=== PATIENT | female | born 1965 | race Caucasian/White ===

== ENCOUNTER 2018-01-11 19:47 | Emergency (ER) | payer MEDICAID, SELFPAY ==
[2018-01-11 19:49] VITALS: BP 158/105; PULSE 117; RESP 20; TEMP 36.6; O2SAT 100; BMI 47.0
[2018-01-11] MEDS: Ondansetron ODT 4 MG Tablet PO (20:20)
[2018-01-11] MEDS: HYDROmorphone 1 MG/ML Syringe IM (20:20)
--- NOTE | 2018-01-11 20:42 | ED.VISSUMM ---
- ER Visit Summary Date of Service: 01/11/18 Chief Complaint: Right arm pain History of Present Illness: The patient is a [address] Lazo. 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 She has pain in her right arm that began 2 weeks ago. Sick cramping pains 10 and 10 severity. Is worsened by movement. She taken naproxen, tizanidine, and Tylenol without relief. She denies any paresthesias or weakness. She reports that she had a similar episode 2 years ago with a flare of her Durcum's. Patient reports the pain has made her nauseated. She denies any fever, chills, chest pain, shortness of breath, abdominal pain, vomiting, or other complaints. Physical Examination: Vitals: Stable. Afebrile. General: Well-nourished and well-developed. Head: Normocephalic atraumatic. Neck: Supple, no lymphadenopathy. No JVD. Nontender. Cardiovascular: Regular rate and rhythm. No murmurs. Respiratory: No respiratory distress. Clear to auscultation bilaterally. Abdominal: Soft, nontender, nondistended, normal bowel sounds. No guarding, rebound, or peritoneal signs. Back: Nontender. Extremities: Severe tenderness palpation is diffuse around the circumference of her right arm. She is neurovascular intact distal is normal sensation light touch and less than 2 second capillary refill. She has 2+ radial pulse. There is no erythema, warmth, or induration to suggest infection. She has normal range of motion without any difficulty. There are multiple lipomas in this area. Skin: Normal color, no rash. Neurologic: Alert and oriented ?3. Cranial nerves II through XII are intact. Normal strength and sensation. Psych: Normal affect. Emergency Department Course and Treatment: An [facility] report was obtained which show she has had one prescription for opiates in the past year. She was treated with Dilaudid and Toradol IM. She is also given Zofran and oxycodone p.o. Patient reports that she is still in pain. I discussed with her the fact that there is not a established treatment for this and that I would send her home with pain medications. She became upset and verbally abusive. Treatment Plan: Patient will be discharged Percocet home pack. She is also given a prescription for Percocet and lidocaine patches. Instructed to follow-up with her primary care physician 1-2 days not improving. She also given the name of Dr. Medellin to follow-up with pain management. Disposition: To home in improved and stable condition. Impression: 1. Right arm pain. 2. History of Durcum's disease. This note was generated with [employer] dictation software. It may contain incorrect words, spelling, and punctuation that were not noted in review of the chart prior to signing ED Disposition - Plan for ED Patient: Disposition: Home or Assisted Living Chief Complaint: Upper Extremity Injury Instructions: ED Chronic Pain Management Prescriptions: Oxycodone HCl/Acetaminophen [Percocet 5/325] 1 tablet PO Q6H PRN PRN 5 Days #20 tablet PRN Reason: Pain Lidocaine [Lidoderm Patch] 1 patch TOPICAL DAILY #10 patch Referrals: Doctor,Your [STAFF PHYSICIAN] - 1-2 Days if not improving Ivan Medellin MD [STAFF PHYSICIAN] -
[2018-01-11] MEDS: oxyCODONE 5 MG Tablet 10 MG PO (21:41)
[2018-01-11] MEDS: Ketorolac 30 MG/ML Syringe 60 MG IM (21:41)
[2018-01-11] MEDS: oxyCODONE 5 MG Tablet PO (21:41)
[2018-01-11 21:51] VITALS: RESP 18
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
== END 2018-01-11 21:53 | disposition home or self-care (01) ==
LOC: ED 20:44
PROVIDERS: Emergency Provider Emergency Medicine
DX: M79.601 Pain in right arm (principal); E88.2 Lipomatosis, not elsewhere classified; E11.9 Type 2 diabetes mellitus without complications; E78.00 Pure hypercholesterolemia, unspecified; I10 Essential (primary) hypertension; Z79.4 Long term (current) use of insulin; Z79.899 Other long term (current) drug therapy
CPT/HCPCS: 96372; 99283

== ENCOUNTER → 2018-02-01 10:15 | Outpatient (CLI) | payer MEDICAID, SELFPAY ==
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
== END ==
PROVIDERS: Visit Provider Orthopaedic Surgery
DX: M25.511 Pain in right shoulder (principal)
CPT/HCPCS: 73030

== ENCOUNTER → 2018-03-08 13:28 | Outpatient (CLI) | payer MEDICAID, SELFPAY ==
--- NOTE | 2018-03-08 13:30 | RAD_ITS ---
STUDY: X-RAY - RIGHT KNEE REASON FOR EXAM: Female, 52 years old. Pain TECHNIQUE: 3 view(s) of the knee. COMPARISON: None. FINDINGS: Normal visualized distal femur. Normal visualized proximal tibia and fibula. Normal proximal tibiofibular articulation. A small bony enthesophyte from the superior margin of the patella Normal medial femorotibial compartment. Normal lateral femorotibial compartment. Normal patellofemoral articulation. The soft tissue structures are unremarkable. RAD/Knee 4 or More Views IMPRESSION: No fracture. A small bony enthesophyte from the superior margin of the patella Electronically Signed: Jaya Ledesma, at 7:20 EDT Tel , Service support ,
== END ==
PROVIDERS: Family Provider Family Medicine; PCP Family Medicine; Visit Provider Family Medicine
DX: M25.561 Pain in right knee (principal)
CPT/HCPCS: 73564

== ENCOUNTER 2019-07-12 08:32 | Emergency (ER) | payer MEDICAID, SELFPAY ==
[2019-07-12 08:33] VITALS: BP 164/78; PULSE 92; RESP 20; TEMP 36.8; O2SAT 99; BMI 48.4
[2019-07-12 08:37] VITALS: O2SAT 99
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
[2019-07-12] MEDS: Diphth,Pertuss(Acell),Tet Vac 0.5 ML Vial IM (09:34)
[2019-07-12] MEDS: LORazepam 1 MG Tablet PO (10:09)
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
[2019-07-12 10:35] VITALS: BP 152/70; PULSE 70; RESP 16; O2SAT 98
== END 2019-07-12 10:36 | disposition home or self-care (01) ==
LOC: ED 10:12
PROVIDERS: Emergency Provider Emergency Medicine; Family Provider Family Medicine; PCP Family Medicine
DX: S16.1XXA Strain of muscle, fascia and tendon at neck level, initial encounter (principal); S60.221A Contusion of right hand, initial encounter; F41.9 Anxiety disorder, unspecified; E11.9 Type 2 diabetes mellitus without complications; I10 Essential (primary) hypertension; Z79.4 Long term (current) use of insulin; Z79.899 Other long term (current) drug therapy; V53.6XXA Passenger in pick-up truck or van injured in collision with car, pick-up truck or van in traffic accident, initial encounter; Y93.I9 Activity, other involving external motion; Y92.410 Unspecified street and highway as the place of occurrence of the external cause; Y99.8 Other external cause status
CPT/HCPCS: 71045; 72040; 73130; 90471; 90715; 99284

== ENCOUNTER → 2021-09-01 | Outpatient (CLI) | payer MEDICAID, SELFPAY ==
[2021-09-01 12:46] LABS: Protein, Urine (Random) 22.4 mg/dL (<11.9); Protein:Creat Ratio 159 mg/g CRE (0-200)
== END | disposition home or self-care (01) ==
LOC: LABSPEC 12:14
PROVIDERS: PCP Family Medicine; Visit Provider Internal Medicine Nephrology
DX: N18.2 Chronic kidney disease, stage 2 (mild) (principal)
CPT/HCPCS: 82570; 84156

== ENCOUNTER 2024-09-27 12:09 | Emergency (ER) | payer OTHER, SELFPAY ==
[2024-09-27 12:10] VITALS: BP 154/82; PULSE 102; RESP 14; TEMP 35.5; O2SAT 98; BMI 42.5
--- NOTE | 2024-09-27 12:26 | RAD_ITS ---
EXAM: XR RIGHT SHOULDER COMPLETE, 2 OR MORE VIEWS CLINICAL INDICATION: injury TECHNIQUE: Two or more views of the right shoulder. COMPARISON: No relevant prior studies available. FINDINGS: BONES/JOINTS: No acute abnormality. SOFT TISSUES: Normal. No soft tissue swelling or gas. No radiopaque foreign body. RAD/Shoulder min 2 Views IMPRESSION: Intact right shoulder. Electronically Signed: Milton Waters MD at 13:23 EST ,
--- NOTE | 2024-09-27 12:27 | EX.ED.UPPERE ---
HPI History of Present Illness Chief Complaint: Upper Extremity Injury Detail of Chief Complaint: Right shoulder injury/pain Informant: patient Narrative Narrative: Patient presents to the emergency department complaint of injury to her right shoulder. Patient states that she was walking down and her ankle twisted and she started to fall so she tried to grab the fireplace with her right arm and then fell. She is not sure if she fell on her right shoulder but having a lot of pain with any type of movement. She is right-hand dominant. She denies striking her head or loss of consciousness. She has been ambulatory. [facility] Medical History (Updated 09/27/24 @ 13:[address] German Gongora, DO) Physical exam, pre-employment Dercums disease Hypertension Diabetes Home Medications ?Medication ?Instructions ?Recorded ?Last Taken ?Type duloxetine 60 mg capsule,delayed 60 mg PO DAILY 02/05/14 07/11/19 History release lisinopril 10 mg tablet 10 mg PO DAILY 02/05/14 07/11/19 History insulin aspart U-100 100 unit/mL 12 units subcut TIDCM ##1 02/17/14 07/11/19 Rx (3 mL) subcutaneous pen (Novolog FlexPen U-100 Insulin aspart) insulin detemir U-100 100 unit/mL 55 units subcut DAILY ##1 02/17/14 07/11/19 Rx (3 mL) subcutaneous pen (Levemir FlexTouch U-100 Insulin) aripiprazole 10 mg tablet ea PO 10/05/22 Unknown History aripiprazole 5 mg tablet 5 mg PO 10/05/22 Unknown History dulaglutide 1.5 mg/0.5 mL 1.5 mg (0.5 mL) subcut QWEEK #2 mL 10/05/22 Unknown Rx subcutaneous pen injector (Trulicity) duloxetine 30 mg capsule,delayed 30 mg PO 10/05/22 Unknown History release metformin 1,000 mg tablet mg PO 10/05/22 Unknown History oxycodone-acetaminophen 5 mg-325 1 tab PO 10/05/22 Unknown History mg tablet pantoprazole 40 mg tablet,delayed tablet PO 10/05/22 Unknown History release ropinirole 4 mg tablet ea PO 10/05/22 Unknown History spironolactone 50 mg tablet tablet PO 10/05/22 Unknown History tramadol 50 mg tablet tablet PO 10/05/22 Unknown History flash glucose sensor (FreeStyle #2 ea 01/18/23 Unknown Rx Donna 2 Sensor kit) hydrocodone-acetaminophen 5-325mg 1 tab PO Q4H PRN PRN Pain 2 days 09/27/24 Unknown Rx 5mg-325mg #10 TABLETS Allergy/AdvReac Type Severity Reaction Status Date / Time alprazolam (From Xanax) Allergy Fever and Verified 09/27/24 12:10 skin rash ketorolac (From Toradol) Allergy unknown Verified 09/27/24 12:10 Family History Father Hypertension Heart disease Diabetes Mother Dercums disease Surgical History H/O hernia repair h/o gallbladder removed H/O: hysterectomy Social History household members: spouse and children Smoking Status: Never smoker ROS ROS ED Review of Systems ROS Unobtainable: other Constitutional Constitutional ED: Reports lethargy; Denies chills, fever(s), sweats or weight loss Eyes Eyes: Denies blurry vision, change in vision or diplopia ENT ENT ED: Denies rhinorrhea or sore throat Cardiovascular Cardiovascular: Denies chest pain, orthopnea or racing heartbeat Respiratory/Chest Respiratory/Chest: Denies dyspnea, dyspnea on exertion, orthopnea or sputum Gastrointestinal Gastrointestinal: Denies abdominal pain, diarrhea, nausea or vomiting Genitourinary Genitourinary ED: Denies dysuria, hematuria or urinary frequency Musculoskeletal Musculoskeletal: Reports other Details: Right shoulder pain/injury ; Denies arthralgias, back pain, myalgias or neck pain Integumentary Denies abscess, Abrasions or rash Neurologic Neurologic: Denies headache(s) or weakness Psychiatric Psychiatric: Denies anxiety, depression or suicidal thoughts Endocrine Endocrinology: Denies polydipsia, polyphagia or polyuria Hematologic/Lymphatic Hematologic/Lymphatic: Denies easy bleeding, easy bruising or lymphadenopathy Allergic/Immunologic Allergic/Immunologic ED: Denies mouth swelling, tongue swelling or urticaria EXAM Physical Exam Const Vital Signs: 09/27/24 12:10 Temperature 96 F L Temperature Source Temporal Pulse Rate 102 H Respiratory Rate 14 Blood Pressure 154/82 H Blood Pressure Mean 106 Pulse Ox 98 Oxygen Delivery Method Room Air Positive well nourished and well developed General Appearance ED: well developed and NAD HEENT Reports TM's clear and moist mucous membranes normocephalic and atraumatic; Negative for trauma or tenderness Tympanic Membrane ED: Yes TM's clear Eyes PERRL and EOMs intact bilaterally General Eye ED: Negative for pale conjunctiva or scleral icterus Neck no lymphadenopathy, supple and no JVD General: Negative for tenderness Chest Wall inspection of chest normal and palpation of chest normal Chest: Negative for tenderness Resp normal respiratory effort and clear to auscultation bilaterally Effort and Inspection: Negative for respiratory distress or pain with movement Auscultation: Negative for rhonchi, wheezes or diminished lung sounds Cardio regular rate, regular rhythm, S1 normal heart sound, S2 normal heart sound and no murmurs Peripheral Pulses: pulses 2+ throughout GI normal to inspection, nondistended, normoactive bowel sounds, soft to palpation, non-tender, non-distended and no masses Back/Spine no CVA tenderness and no thoracic nor lumbar tenderness Extremity Extremity Narrative: Right upper extremity-evaluation of the shoulder reveals no obvious deformity. There is no sulcus sign. She does have pain with any type of range of motion especially abduction at the glenohumeral joint. She is neurovascular intact distally. There is no ecchymosis or bruising. There is no erythema or warmth. General Extremety ED: Negative for edema General Extremity: Negative for edema Neuro oriented x3, CN's II-XII intact bilaterally, no sensory deficits noted and gait normal Sensorium / Orientation: awake, alert, oriented to person, oriented to place and oriented to time Motor Exam: strength 5/5 throughout and strength abnormal Psych mental status grossly normal Skin no rashes or lesions noted and no wounds MDM MDM MDM Narrative Medical decision making narrative: Patient with mechanical fall and injury to the right shoulder. Unclear if she fell directly on it or try to grab the fireplace to catch herself before falling and straining her shoulder. X-rays were unremarkable. Patient will be given a sling. While in department she did receive a dose of morphine 4 mg IM. Patient will be given a prescription for few [place] for pain. She is advised to follow-up with orthopedics within the next 5 to 7 days. She has seen [facility] in the past. Radiography Diagnostic Testin view x-rays of right shoulder obtained interpreted by myself as no evidence of fracture or dislocation and radiology was in agreement. Discharge Plan Triage Chief Complaint: Upper Extremity Injury ED Provider: German Gongora Dx/Rx/DC Orders Clinical Impression: Sprain of right shoulder Instructions: ED Shoulder Sprain Prescriptions: New hydrocodone-acetaminophen 5-325 mg tablet 1 tab PO Q4H PRN PRN (Reason: Pain) 2 Days Qty: 10 0RF No Action aripiprazole 10 mg tablet PO Patient Comments: TAKE ONE TABLET BY MOUTH NIGHTLY for DEPRESSION duloxetine 30 mg capsule,delayed release(DR/EC) 30 mg PO spironolactone 50 mg tablet PO pantoprazole 40 mg tablet,delayed release (DR/EC) PO ropinirole 4 mg tablet PO Patient Comments: TAKE ONE TABLET BY MOUTH TWICE DAILY aripiprazole 5 mg tablet 5 mg PO Patient Comments: TAKE ONE TABLET BY MOUTH NIGHTLY FOR depression tramadol 50 mg tablet PO oxycodone-acetaminophen 5-325 mg tablet 1 tab PO Patient Comments: TAKE ONE TABLET BY MOUTH TWICE DAILY NEEDED metformin 1,000 mg tablet PO Trulicity 1.5 mg/0.5 mL pen injector 1.5 mg subcut QWEEK Qty: 2 5RF insulin detemir U-100 [Levemir FlexTouch U100 Insulin] 100 UNITS/ML insulin pen 55 units subcut DAILY Qty: 1 0RF Patient Comments: diabetes insulin aspart U-100 [Novolog FlexPen U-100 Insulin] 100 UNITS/ML insulin pen 12 units subcut TIDCM Qty: 1 0RF Patient Comments: diabetes lisinopril 10 MG tablet 10 mg PO DAILY Patient Comments: blood pressure duloxetine 60 MG capsule 60 mg PO DAILY Patient Comments: depression (DME) FreeStyle Donna 2 Sensor Kit See Rx Instructions .Route Qty: 2 5RF Rx Instructions: As directed Primary Care Provider: Vaishali Guevara Referrals: Vaishali Guevara MD [Primary Care Provider] - Activity Restrictions/Additional Instructions: Follow-up with your primary care physician or orthopedic surgeon within the next 5 to 7 days Print Language: Arabic Disposition Disposition: Home, Self Care
[2024-09-27] MEDS: Morphine 4 MG/ML Syringe IM (12:33)
[2024-09-27] MEDS: Ondansetron ODT 4 MG Tablet PO (12:33)
[2024-09-27 13:39] VITALS: BP 138/67; PULSE 82; RESP 16; TEMP 36.4; O2SAT 98
== END 2024-09-27 13:42 | disposition home or self-care (01) ==
PROVIDERS: Emergency Provider Emergency Medicine; PCP Family Medicine; Visit Provider Emergency Medicine
DX: S43.401A Unspecified sprain of right shoulder joint, initial encounter (principal); E11.9 Type 2 diabetes mellitus without complications; I10 Essential (primary) hypertension; W19.XXXA Unspecified fall, initial encounter
CPT/HCPCS: 73030; 96372; 99282